=== PATIENT | male | born 1965 | race Two or more races ===

== ENCOUNTER 2018-10-03 12:54 | Emergency (ER) | payer MEDICARE, OTHER ==
[2018-10-03] MEDS: LORAZEPAM 1 MG TAB PO ×2 (13:05→14:07)
== END 2018-10-03 14:37 | disposition home or self-care (01) ==
LOC: E/R 12:54
DX: F41.9 Anxiety disorder, unspecified (principal); I10 Essential (primary) hypertension; J45.909 Unspecified asthma, uncomplicated; F17.210 Nicotine dependence, cigarettes, uncomplicated; Z79.4 Long term (current) use of insulin; Z79.82 Long term (current) use of aspirin; Z95.1 Presence of aortocoronary bypass graft
CPT/HCPCS: 99283

== ENCOUNTER 2018-10-12 21:45 | Emergency (ER) | payer SELFPAY, OTHER, MEDICARE | END 2018-10-13 00:28 | disposition left against medical advice (07) | LOC: E/R 21:45 | DX: Z53.21 Procedure and treatment not carried out due to patient leaving prior to being seen by health care provider (principal) | CPT/HCPCS: 93005 ==

== ENCOUNTER 2018-11-25 09:42 | Observation (INO) | payer MEDICARE, OTHER ==
[2018-11-25 11:03] LABS: ADD MAN DIFF? NO
[2018-11-25 11:04] LABS: ABNORMAL IP MESSAGE 1; BASOPHILS % 0.7 % (0.0-2.0); EOSINOPHILS # 0.1 10^3/ul (0.0-0.5); EOSINOPHILS % 1.1 % (0.0-7.0); HEMATOCRIT 38.1 % (42.0-52.0); LYMPHOCYTES # 0.5 10^3/ul (0.8-2.9); LYMPHOCYTES % 9.4 % (15.0-51.0); MEAN CORPUSCULAR HEMOGLOBIN 34.5 pg (29.0-33.0); MEAN CORPUSCULAR HGB CONC 34.1 g/dl (32.0-37.0); MEAN CORPUSCULAR VOLUME 101.1 fl (82.0-101.0); MEAN PLATELET VOLUME 11.2 fl (7.4-10.4); MONOCYTE # 0.4 10^3/ul (0.3-0.9); MONOCYTES % 6.5 % (0.0-11.0); NEUTROPHIL # 4.5 10^3/ul (1.6-7.5); NEUTROPHILS % 81.9 % (39.0-77.0); PLATELET COUNT 87 10^3/UL (140-415); POSITIVE DIFF @See below; RED BLOOD COUNT 3.77 10^6/ul (4.70-6.10); RED CELL DISTRIBUTION WIDTH 12.4 % (11.5-14.5)
[2018-11-25 11:04] LABS: WHITE BLOOD COUNT 5.5 10^3/ul (4.8-10.8)
[2018-11-25] MEDS: CHLORDIAZEPOXIDE 25 MG CAP PO (11:07)
[2018-11-25] MEDS: ASPIRIN 325 MG TAB PO (11:07)
[2018-11-25 11:29] LABS: ANION GAP 11 (5-13); BLOOD UREA NITROGEN 19 mg/dl (7-20); CALCIUM 9.1 mg/dl (8.4-10.2); CARBON DIOXIDE 23 mmol/L (21-31); CHLORIDE 99 mmol/L (97-110); CREATININE 0.89 mg/dl (0.61-1.24); Estimated GFR > 60 mL/min (>60); GLUCOSE 146 mg/dl (70-220); POTASSIUM 3.9 mmol/L (3.5-5.1); SODIUM 133 mmol/L (135-144)
[2018-11-25 11:41] LABS: TROPONIN-I < 0.012 ng/ml (0.000-0.120)
[2018-11-25] MEDS ORDERED: ACETAMINOPHEN 325 MG TAB PO ×2 (13:30→16:30)
[2018-11-25] MEDS ORDERED: ONDANSETRON 4 MG INJ IV ×2 (13:30→16:30)
[2018-11-25] MEDS: LORAZEPAM 1 MG TAB PO ×2 (14:09→20:52)
[2018-11-25 16:30] LABS: INR 1.01; PROTIME 13.4 Sec (11.9-14.9)
[2018-11-25] MEDS ORDERED: LORAZEPAM 1 MG TAB PO (16:30)
[2018-11-25] MEDS ORDERED: BISACODYL 10 MG SUPP PR (16:30)
[2018-11-25] MEDS ORDERED: DOCUSATE SODIUM 100 MG CAP PO (16:30)
[2018-11-25] MEDS ORDERED: NACL 0.9% 3 ML SYG IV (16:30)
[2018-11-25] MEDS ORDERED: BISACODYL (EC) 5 MG TAB PO (16:30)
[2018-11-25 16:31] LABS: ALANINE AMINOTRANSFERASE 86 IU/L (13-69); ALBUMIN 3.3 g/dl (3.3-4.9); ALKALINE PHOSPHATASE 48 IU/L (42-121); ASPARTATE AMINO TRANSFERASE 120 IU/L (15-46); BILIRUBIN,INDIRECT 0.8 mg/dl (0-1.1); BILIRUBIN,TOTAL 0.8 mg/dl (0.2-1.3); TOTAL PROTEIN 5.6 g/dl (6.1-8.1)
[2018-11-25 16:35] LABS: LIPASE < 10 U/L (23-300)
[2018-11-25] MEDS: SOD CHLORIDE 0.9% 1,000 ML IV (16:49)
[2018-11-25] MEDS: IBUPROFEN 800 MG TAB PO ×2 (18:46→22:00)
[2018-11-25] MEDS: morphine 2 MG INJ IV (18:46)
[2018-11-25 18:56] LABS: CREATINE KINASE 641 IU/L (23-200)
[2018-11-25] MEDS: THIAMINE 100 MG TAB PO (19:05)
[2018-11-25 19:07] LABS: CK INDEX 0.4; TROPONIN-I < 0.012 ng/ml (0.000-0.120)
[2018-11-25 19:09] LABS: CK-MB 2.67 ng/ml (0.0-2.4)
[2018-11-25] MEDS: DULOXETINE 30 MG CAP DR PO (20:51)
[2018-11-25] MEDS: FAMOTIDINE 20 MG TAB PO (20:52)
[2018-11-25] MEDS: HYDROCODONE/APAP (5/325) TAB PO (20:54)
[2018-11-25 23:42] LABS: CREATINE KINASE 578 IU/L (23-200)
[2018-11-25 23:53] LABS: CK INDEX 0.4; TROPONIN-I < 0.012 ng/ml (0.000-0.120)
[2018-11-26] MEDS: IBUPROFEN 800 MG TAB PO ×2 (05:55→13:16)
[2018-11-26 06:08] LABS: ADD MAN DIFF? NO
[2018-11-26 06:12] LABS: ABNORMAL IP MESSAGE 1; BASOPHILS % 0.7 % (0.0-2.0); EOSINOPHILS # 0.1 10^3/ul (0.0-0.5); EOSINOPHILS % 2.8 % (0.0-7.0); HEMATOCRIT 36.5 % (42.0-52.0); HEMOGLOBIN 12.3 g/dl (14.0-18.0); LYMPHOCYTES % 22.4 % (15.0-51.0); MEAN CORPUSCULAR HEMOGLOBIN 34.1 pg (29.0-33.0); MEAN CORPUSCULAR HGB CONC 33.7 g/dl (32.0-37.0); MEAN CORPUSCULAR VOLUME 101.1 fl (82.0-101.0); MEAN PLATELET VOLUME 10.6 fl (7.4-10.4); MONOCYTE # 0.4 10^3/ul (0.3-0.9); MONOCYTES % 9.4 % (0.0-11.0); NEUTROPHIL # 2.7 10^3/ul (1.6-7.5); NEUTROPHILS % 64.5 % (39.0-77.0); POSITIVE DIFF @See below; RED BLOOD COUNT 3.61 10^6/ul (4.70-6.10); RED CELL DISTRIBUTION WIDTH 12.5 % (11.5-14.5)
[2018-11-26 06:12] LABS: WHITE BLOOD COUNT 4.2 10^3/ul (4.8-10.8)
[2018-11-26 06:18] LABS: PLATELET COUNT 68 10^3/UL (140-415)
[2018-11-26 06:29] LABS: HEMOGLOBIN A1C 6.1 % (0-5.9)
[2018-11-26 06:47] LABS: TROPONIN-I < 0.012 ng/ml (0.000-0.120)
[2018-11-26 07:17] LABS: ALANINE AMINOTRANSFERASE 62 IU/L (13-69); ALBUMIN 2.9 g/dl (3.3-4.9); ALBUMIN/GLOBULIN RATIO 1.11; ALKALINE PHOSPHATASE 50 IU/L (42-121); ANION GAP 3 (5-13); ASPARTATE AMINO TRANSFERASE 62 IU/L (15-46); BILIRUBIN,INDIRECT 0.5 mg/dl (0-1.1); BILIRUBIN,TOTAL 0.5 mg/dl (0.2-1.3); BLOOD UREA NITROGEN 14 mg/dl (7-20); CALCIUM 9.2 mg/dl (8.4-10.2); CARBON DIOXIDE 27 mmol/L (21-31); CHLORIDE 106 mmol/L (97-110); CREATININE 0.67 mg/dl (0.61-1.24); Estimated GFR > 60 mL/min (>60); GLUCOSE 147 mg/dl (70-220); MAGNESIUM 1.6 mg/dl (1.7-2.5); SODIUM 136 mmol/L (135-144); TOTAL PROTEIN 5.5 g/dl (6.1-8.1)
[2018-11-26] MEDS: THIAMINE 100 MG TAB PO (08:11)
[2018-11-26] MEDS: BENZTROPINE 1 MG TAB PO (08:11)
[2018-11-26] MEDS: RISPERIDONE 1 MG TAB PO (08:12)
[2018-11-26] MEDS: FAMOTIDINE 20 MG TAB PO (08:12)
[2018-11-26] MEDS: DULOXETINE 30 MG CAP DR PO (08:12)
[2018-11-26] MEDS: LAMOTRIGINE 100 MG TAB PO (08:12)
[2018-11-26] MEDS: ASPIRIN (EC) 81 MG TAB PO (08:13)
[2018-11-26 08:20] LABS: CHOLESTEROL 136 mg/dl (100-200)
[2018-11-26 08:20] LABS: CHOL/HDL RATIO 2.3 RATIO; HDL CHOLESTEROL 59 mg/dl (28-71); LDL CHOLESTEROL,CALCULATED 53 mg/dl; TRIGLYCERIDES 121 mg/dl (0-149)
[2018-11-26] MEDS ORDERED: ENOXAPARIN 40 MG/0.4 ML SYG SC (09:00)
[2018-11-26] MEDS: morphine 2 MG INJ IV (11:06)
[2018-11-26] MEDS: HYDROCODONE/APAP (5/325) TAB PO (12:25)
[2018-11-26] MEDS: LORAZEPAM 1 MG TAB PO (13:16)
[2018-11-26] MEDS: MAGNESIUM SULFATE 2 GM/50 ML 50 ML IVPB (16:09)
[2018-11-28] MEDS ORDERED: ENOXAPARIN 40 MG/0.4 ML SYG SC (09:00)
== END 2018-11-26 17:19 | disposition home or self-care (01) ==
LOC: E/R 09:42 → TEL 13:28
DX: R07.89 Other chest pain (principal); I25.10 Atherosclerotic heart disease of native coronary artery without angina pectoris; Z95.1 Presence of aortocoronary bypass graft; J45.909 Unspecified asthma, uncomplicated; I10 Essential (primary) hypertension; E11.9 Type 2 diabetes mellitus without complications; F41.9 Anxiety disorder, unspecified; D69.6 Thrombocytopenia, unspecified; F17.210 Nicotine dependence, cigarettes, uncomplicated; Z79.4 Long term (current) use of insulin; Z79.82 Long term (current) use of aspirin
CPT/HCPCS: 36415; 71045; 80048; 80053; 80061; 80076; 82550; 82553; 82607; 82746; 82962; 83036; 83690; 83735; 84443; 84484; 85025; 85610; 93005; 99285-25; G0378